=== PATIENT | female | born 1980 | race Caucasian/White ===

== ENCOUNTER 2022-11-05 09:38 | Outpatient (REF) | payer BC, SELFPAY ==
[2022-11-05 13:05] LABS: C Reactive Protein < 0.10 mg/dL (< or = 0.50)
[2022-11-05 13:25] LABS: Folate > 20.0 ng/mL (> or = 4.0); TSH reflex Free T4 1.53 uIU/mL (0.32-4.0); Vitamin B12 315 pg/mL (200-900)
[2022-11-06 11:32] LABS: H Pylori Breath Test Negative (Negative)
[2022-11-10 11:14] LABS: Transglutaminase Ab IgG <1.0 U/mL; Transglutaminase IgA <1.0 U/mL
[2022-11-11 07:58] LABS: Vitamin D 25-OH, D2 <4 ng/mL; Vitamin D 25-OH, D3 26 ng/mL; Vitamin D 25-OH, Total 26 ng/mL (30-100)
== END 2022-11-05 09:39 | disposition home or self-care (01) ==
LOC: HO.LAB 09:38
PROVIDERS: Visit Provider Nurse Practitioner Family
DX: R10.9 Unspecified abdominal pain (principal); K58.9 Irritable bowel syndrome, unspecified; R19.7 Diarrhea, unspecified; K59.00 Constipation, unspecified; E55.9 Vitamin D deficiency, unspecified
CPT/HCPCS: 36415; 82306; 82607; 82746; 83013; 84443; 86140; 86364

== ENCOUNTER 2022-11-18 13:41 | Outpatient (REF) | payer BC, SELFPAY ==
[2022-11-18 15:12] LABS: CDiff Gene PCR NEGATIVE (Negative)
[2022-11-18 15:39] LABS: Leukocytes Stool Qualitative NEGATIVE (NEGATIVE)
[2022-11-19 07:44] LABS: Campylobacter Not Detected (Not Detect.); E. coli EAEC Not Detected (Not Detect.); E. coli EPEC Not Detected (Not Detect.); E. coli ETEC Not Detected (Not Detect.); E. coli STEC Not Detected (Not Detect.); Plesiomonas shigelloides Not Detected (Not Detect.); Salmonella Not Detected (Not Detect.); Vibrio Not Detected (Not Detect.); Vibrio Cholerae Not Detected (Not Detect.); Yersinia enterocolitica Not Detected (Not Detect.)
[2022-11-19 07:45] LABS: Adenovirus F 40/41 Not Detected (Not Detect.); Astrovirus Not Detected (Not Detect.); Cryptosporidium Not Detected (Not Detect.); Cyclospora cayetanensis Not Detected (Not Detect.); Entamoeba histolytica Not Detected (Not Detect.); Giardia lamblia Not Detected (Not Detect.); Norovirus GI/GII Not Detected (Not Detect.); Rotavirus A Not Detected (Not Detect.); Sapovirus Not Detected (Not Detect.); Shigella sp./EIEC Not Detected (Not Detect.)
[2022-11-23 16:08] LABS: Fecal Fat Qualitative NORMAL (NORMAL)
[2022-11-25 00:37] LABS: Calprotectin, Fecal <5 mcg/g
== END 2022-11-18 13:42 | disposition home or self-care (01) ==
LOC: HO.LNP 13:41
PROVIDERS: Visit Provider Nurse Practitioner Family
DX: R15.9 Full incontinence of feces (principal); R19.7 Diarrhea, unspecified
CPT/HCPCS: 82705; 83993; 87177; 87209; 87493; 87507; 89055

== ENCOUNTER → 2022-12-14 10:36 | Outpatient (BNVA) | payer BC, SELFPAY | PROVIDERS: Visit Provider Nurse Practitioner Family ==

== ENCOUNTER 2022-12-16 11:35 | Day surgery (SDC) | payer BC, SELFPAY ==
--- NOTE | 2022-12-15 12:36 | P.CONAN_ITS ---
HPI - Anesthesia Eval Consult details Narrative: 42yo F for Upper Endoscopy PMFSH Active Problems Active Problems: All Active Problems (Updated 11/05/22 @ 10:43 by Sandra Ruby [facility]) GERD (gastroesophageal reflux disease) (Acute) Past Medical History Medical History Asthma Generalized anxiety disorder GERD (gastroesophageal reflux disease) Family History Family History Paternal Grandmother Breast cancer Maternal Grandmother Breast cancer Paternal Aunt Breast cancer Paternal Aunt Breast cancer Father Stroke Daughter Celiac disease Social History Social History Household Members: Family Alcohol intake: never Patient Tobacco Use Status: Never used Tobacco Meds Allergies Allergy/AdvReac Type Severity Reaction Status Date / Time No Known Allergies Allergy Unverified 12/14/22 10:49 Home Medications Medication Instructions Recorded Confirmed Last Taken Type fluoxetine 40 mg capsule 40 mg PO DAILY 11/05/22 Unknown History fremanezumab-vfrm 225 mg/1.5 mL mg subcut 11/05/22 Unknown History subcutaneous auto-injector (Ajovy) Exam Exam Date and Time: December 15, 2022 1236 Assessment and Plan Assessment Anesthesia Assessment: Chart Reviewed
[2022-12-16 11:41] VITALS: BMI 22.4
[2022-12-16] MEDS: Lactated Ringers 1,000 ML 100 ML IVCONT (11:52)
[2022-12-16 11:59] VITALS: BP 111/71; PULSE 61; RESP 18; TEMP 37.2; O2SAT 99
[2022-12-16 12:10] LABS: UPreg QC Valid YES; Urine Pregnancy NEGATIVE (NEGATIVE)
--- NOTE | 2022-12-16 12:37 | P.CONAN_ITS ---
[facility] Active Problems Active Problems: All Active Problems (Updated 11/05/22 @ 10:43 by Sandra Ruby [facility]) GERD (gastroesophageal reflux disease) (Acute) Past Medical History Medical History Asthma Generalized anxiety disorder GERD (gastroesophageal reflux disease) Family History Family History Paternal Grandmother Breast cancer Maternal Grandmother Breast cancer Paternal Aunt Breast cancer Paternal Aunt Breast cancer Father Stroke Daughter Celiac disease Family history of problems with anesthesia: No Surgical History History of Problems with Anesthesia: No Social History Social History Household Members: Family Alcohol intake: never Patient Tobacco Use Status: Never used Tobacco Are you DNR?: No Advance Directives: No Advance Directives Information Provided: Yes Nutrition Risks: No Nutritional Risk Meds Allergies Allergy/AdvReac Type Severity Reaction Status Date / Time No Known Allergies Allergy Unverified 12/14/22 10:49 Active Medications: Current Medications Albuterol Sulfate (Albuterol Sulfate (0.083%) 2.5 Mg/3 Ml Vial.Neb) 2.5 mg INHALE ONCE PRN PRN Reason: Shortness of Breath/Wheezing Lactated Ringer's (Lr) 1,000 mls @ 100 mls/hr IVCONT .Q10H DOC Last Admin: 12/16/22 11:52 Dose: 100 mls/hr Ondansetron HCl (Ondansetron Hcl 4 Mg/2 Ml Vial) 4 mg IVPUSH ONCE PRN PRN Reason: Nausea and Vomiting Home Medications Medication Instructions Recorded Confirmed Last Taken Type fluoxetine 40 mg capsule 40 mg PO DAILY 11/05/22 Unknown History fremanezumab-vfrm 225 mg/1.5 mL mg subcut 11/05/22 Unknown History subcutaneous auto-injector (Ajovy) Exam Exam Date and Time: December 16, 2022 1237 Height,Weight and Vital Signs: Height 5 ft 9.5 in Weight 69.853 kg Last Vital Signs Temp 98.9 F 12/16/22 11:59 Pulse 61 12/16/22 11:59 Resp 18 12/16/22 11:59 BP 111/71 12/16/22 11:59 Pulse Ox 99 12/16/22 11:59 O2 Del Method Room Air 12/16/22 11:59 Pertinent Lab Results Pertinent Lab Results: Laboratory Tests 12/16/22 11:50 Urine Test NEGATIVE Airway Mallampati Class: II TM Dist: >3cm Loose/Missing/Broken Teeth: No (rrr) Lungs: clear Assessment and Plan Final Anesthetic Review Family History of Problems with Anesthesia: No History of Problems with Anesthesia: No NPO: Yes ASA Class: II Final Preanesthetic Review: No Changes in Pt Med Stat, Meds/Allgs Chart Reviewed, Consent Obtained/Reviewed and Anes Risks/Benef Reviewed Patient Risk: Intermediate Procedure Risk: Low Anesthetic Plan Anesthetic Plan: MAC: Disposition: Standard PACU
--- NOTE | 2022-12-16 12:46 | MHC.SHP ---
Pre-Procedural Eval Section A Date of Service: 12/16/22 The patient is an INPATIENT: No Changes since office visit: Yes Patient answered all questions; No Cold of Flu in the past 2 weeks, No New Medical Problems and No Changes in Medication The History & Physical has been completed within 30 days and I have reviewed it.: Yes Section B Chief Complaint: Gastro-esophageal reflux disease without esophagit Allergies: Allergies Allergy/AdvReac Type Severity Reaction Status Date / Time No Known Allergies Allergy Unverified 12/14/22 10:49 Plan I have reviewed the history and physical and performed a pertinent physical examination on my patient. No changes have occurred unless specified. Time Spent With Patient Time: Total time managing care of this patient today ____ minutes.
--- NOTE | 2022-12-16 12:47 | P.OP_ITS ---
Operative Note Operative Note Date of Service: 12/16/22 Narrative: FLEXIBLE TRANSORAL UPPER GASTROINTESTINAL ENDOSCOPY WITH BIOPSIES Pre-op diagnosis: GERD Post-op diagnosis: GERD, gastritis Endoscopist:? Mamadou Crowder MD Anesthesia:?MAC Consent: Indications for the procedure and potential complications of bleeding, perforation, reaction to medications and missed diagnosis were discussed with the patient and informed consent was obtained. Instrument: Olympus GIF H 190 mid size upper endoscope Monitoring: Vital signs and clinical assessment, continuous EKG monitoring, Pulse oximetry, Carbon Dioxide monitoring and blood pressure monitoring were done throughout the procedure. Procedure: The patient was placed in the left lateral decubitis position and pre-procedure medications were administered and a bite block was placed. The endoscope was inserted into the mouth and advanced under direct vision to the third part of duodenum. A careful inspection was made as the upper endoscope was withdrawn including a retroflexed examination of the proximal stomach; Findings and interventions are described below. Findings: Larynx: Normal Esophagus: GE junction at 40 cms. No esophagitis or Thompson's. Stomach: Mild gastritis with linear streaks of erythema containing a few chronic appearing erosions. Biopsies were obtained. Grade 2 flap valve on retroflexed examination of the cardia. Duodenum: Normal bulb and descending duodenum. Biopsies were obtained from 3rd part of the duodenum to check for celiac sprue. Intervention: Biopsies as noted above Impression and Post Procedure Diagnosis: Endoscopy Findings: ESOPHAGUS: Normal STOMACH: Mild gastritis with linear streaks of erythema containing a few chronic appearing erosions. DUODENUM: Normal - biopsied to check for celiac sprue Plan: Await pathology results Patient has an appointment on 01/24/23 in the GI Clinic with Sandra Ruby FNP- [facility] . Above findings were reviewed with the patient and GERD handout was given in the discharge area
[2022-12-16 13:09] VITALS: BP 103/60; PULSE 69; RESP 20; TEMP 36.4; O2SAT 97
[2022-12-16 13:24] VITALS: BP 109/68; PULSE 53; RESP 16; O2SAT 100
[2022-12-16 13:34] VITALS: BP 106/68; PULSE 65; RESP 14; TEMP 36.4; O2SAT 100
== END 2022-12-16 14:24 | disposition home or self-care (01) ==
PROVIDERS: Nurse Practitioner; Visit Provider Internal Medicine Gastroenterology
PROC: 0DJ08ZZ Inspection of Upper Intestinal Tract, Via Natural or Artificial Opening Endoscopic (ICD-10-PCS; CPT 43235; principal; 2022-12-16 13:00)
DX: K21.9 Gastro-esophageal reflux disease without esophagitis (principal); K29.60 Other gastritis without bleeding; K22.4 Dyskinesia of esophagus; K58.2 Mixed irritable bowel syndrome; K59.1 Functional diarrhea; J45.909 Unspecified asthma, uncomplicated; F41.1 Generalized anxiety disorder; E55.9 Vitamin D deficiency, unspecified; Z79.899 Other long term (current) drug therapy
CPT/HCPCS: 43239; 81025; 88305; 88342

== ENCOUNTER → 2023-01-24 08:05 | Outpatient (BNVA) | payer BC, SELFPAY | PROVIDERS: Visit Provider Nurse Practitioner Family ==

== ENCOUNTER 2023-06-07 09:59 | Outpatient (AMB) | payer BC, SELFPAY ==
--- NOTE | 2023-06-07 10:00 | MHC.OFFVIS ---
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 Intake Note: New patient chest pain c/o chest pain daily mostly at rest in the AM can last up to 20 min and is located in the left upper chest Secondary Set Up Man Required: No Allergies No Known Allergies Allergy (Unverified 01/24/23 08:13) Medication List - Last Reconciled 06/07/23 by Rickey Berger MD cholecalciferol (vitamin D3) 50 mcg PO DAILY fluoxetine 40 mg PO DAILY fremanezumab-vfrm (Ajovy) mg subcut methylcellulose (laxative) (Citrucel) 500 mg PO DAILY pyridoxine (vitamin B6) 25 mg PO DAILY HPI HPI Comments History of Present Illness Details Thank you for referring Joan in cardiology consultation today for precordial chest discomfort. She is a 43-year-old female with no significant fast medical history with no history of hypertension, diabetes hyperlipidemia or smoking. She has GI issues with acid reflux disease as well as irritable bowel syndrome. Patient is referred here because of precordial chest discomfort. Should this she says is almost present on a daily basis for many years. Symptoms are described as dull ache usually when she wakes up in the morning and can sometimes get intense. She says she is anxious almost every day and this could increase the symptoms. She does not describe to symptoms as exertional in nature. Denies any lightheadedness, syncope. [facility] Medical History Generalized anxiety disorder Asthma GERD (gastroesophageal reflux disease) Surgical History History of esophagogastroduodenoscopy (EGD) Family History Paternal Grandmother Breast cancer Maternal Grandmother Breast cancer Paternal Aunt Breast cancer Paternal Aunt Breast cancer Father Stroke Daughter Celiac disease Social History Household Members: Family Alcohol intake: never Patient Tobacco Use Status: Never used Tobacco Review of Systems Const Denies chills, Denies fatigue, Denies fever(s), Denies frequent falls, Denies weakness, Denies weight gain and Denies weight loss ENT Denies dizziness Card Denies chest pain, Denies leg edema, Denies lightheadedness, Denies palpitations, Denies dyspnea, Denies dyspnea on exertion, Denies orthopnea and Denies other (loss of consciousness) Resp Denies cough, Denies dyspnea and Denies dyspnea on exertion GI Denies hematochezia and Denies change in stool character Musc Denies abnormal gait, Denies muscle weakness, Denies numbness, Denies radiating pain into limb and Denies tingling Neuro Denies abnormal gait, Denies dizziness, Denies frequent falls, Denies numbness, Denies tingling and Denies weakness Endo Denies fatigue and Denies palpitations Physical Exam Vital Signs: Last Vital Signs Pulse 70 06/07/23 10:01 BP 118/72 06/07/23 10:01 BMI result Body Mass Index 23.4 Const General: cooperative, comfortable, no acute distress, well developed, alert, awake and Physically active Nutritional Appearance: thin Orientation/consciousness: patient oriented x3 Limitations: no limitations HEENT Head: Yes normocephalic and Yes atraumatic Neck Neck: Yes trachea midline, Yes supple and Yes no JVD Resp Effort & Inspection: normal respiratory effort Auscultation: clear to auscultation bilaterally Cardio Jugular venous distension: no JVD Palpation: normal PMI Rate: regular rate Rhythm: regular rhythm Heart sounds: S1 normal heart sound present, S2 normal heart sound present, no click, no gallops, no murmurs and no rubs GI Auscultation: normal bowel sounds Skin General skin exam: no rashes or lesions noted Neuro General: patient oriented x3 and no focal motor deficits Extrem General: Yes no clubbing, cyanosis or edema Psych Affect: Anxious affect present Attitude: Avoids eye contact (attititude/behavior) Office Procedures EKG Details: EKG shows normal sinus rhythm normal EKG [id number], Complete Assessment & Plan Assessment & Plan (1) Precordial pain: Code(s): R07.2 - Precordial pain Plan: Precordial chest pain this young woman without significant cardiovascular risk factors with atypical nature of the discomfort occasional increased with stressful situation. Likelihood of underlying obstructive coronary artery disease low. Given baseline normal EKG will pursue regular treadmill exercise stress test to evaluate for myocardial ischemia. If this is negative noncardiac causes of chest pain need to be evaluated including possible GI related chest pain and/or musculoskeletal chest pain. Will follow up in the clinic if need be. Thank you for allowing me to partake in her care Orders: Orders CA stress test Today R07.2 - Precordial pain Coding Level of Care Code New Pt Level 3 (87602) Diagnoses Precordial pain R07.2 CPT Codes EKG - CPT: 78798-[id number], Complete ([id number])
[2023-06-07 10:01] VITALS: BP 118/72; PULSE 70; BMI 23.4
== END 2023-06-07 10:26 | disposition home or self-care (01) ==
PROVIDERS: Visit Provider Internal Medicine Cardiovascular Disease
DX: R07.2 Precordial pain (principal)
CPT/HCPCS: 93010; 99203

== ENCOUNTER → 2023-06-07 09:59 | Outpatient (BNVA) | payer BC, SELFPAY | PROVIDERS: Visit Provider Internal Medicine Cardiovascular Disease | DX: R07.2 Precordial pain (principal) | CPT/HCPCS: 93005 ==

== ENCOUNTER → 2023-08-19 14:18 | Outpatient (BNVA) | payer BC, SELFPAY | PROVIDERS: Visit Provider Nurse Practitioner Family ==

== ENCOUNTER 2024-02-17 13:42 | Outpatient (AMB) | payer BC, SELFPAY ==
[2024-02-17 13:53] VITALS: BP 99/67; PULSE 65; BMI 22.4
--- NOTE | 2024-02-17 13:53 | A.OFFVIS_ITS ---
Vital Signs 02/17/24 13:53 Height 5 ft 9 in Weight 151 lb 10.848 oz BMI 22.4 BP 99/67 Blood Pressure Location Rt brachial Position Sitting Pulse 65 Intake Visit Reasons: Follow up 6 months Intake Note: Joan returns to in office today in 6 months follow up. CC: Patient reports doing well and denies having any GI concerns today. 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 Discussed with patient avoiding dietary triggers and late night snacking. Staying upright for minimum 3 hours after meals discussed with patient. Patient will follow-up with PCP and will request referral to an senior account representative. 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 Patient will follow-up in the office in 6 months, sooner on as needed basis. Patient is agreeable to this plan and verbalizes understanding of instructions. She was given the opportunity to ask questions and all questions answered. ? Thank you for allowing me to participate in her care Medications New esomeprazole magnesium (Nexium) 40 mg PO DAILY 30 caps 5RF K21.9 TODAY'S VISIT Patient is here today for follow-up. Patient reports that she has been feeling better. Patient reports that she no longer has a esophageal spasms and dysphagia. Occasional acid reflux depending on what she eats. Patient states that she stopped taking Nexium and no longer feels like she needs it. Patient was seen by senior account representative and was told that she does not have any allergies. CT scan of the head was done and patient was found to have deviated septum and clear sinuses. Was told that she might suffer from postnasal drip that sometimes could be causing her symptoms. Patient reports occasional abdominal bloating. Moves her bowels without any issues. Patient denies any other GI concerning symptoms PFSH Medical History Generalized anxiety disorder Asthma GERD (gastroesophageal reflux disease) Surgical History History of esophagogastroduodenoscopy (EGD) Family History Paternal Grandmother Breast cancer Maternal Grandmother Breast cancer Paternal Aunt Breast cancer Paternal Aunt Breast cancer Father Stroke Daughter Celiac disease Social History Household Members: Family Alcohol intake: never Patient Tobacco Use Status: Never used Tobacco Physical Exam Vital Signs: BMI result Body Mass Index 22.4 Const General: healthy appearing, no acute distress and well developed Nutritional Appearance: well nourished Orientation/consciousness: patient oriented x3 HEENT Head: Yes normal to inspection, Yes normocephalic and Yes atraumatic Face and sinus: Yes normal facial exam Mouth: Normal oral and palatal mucosa present Throat: Yes posterior oropharynx normal, Yes tonsils normal and Yes uvula midline Eyes General: appearance normal, both eyes and all related structures Neck Neck: Yes normal visual inspection, Yes full ROM and Yes trachea midline Thyroid: Thyroid normal Resp Effort & Inspection: normal respiratory effort, able to speak in complete sentences, no tracheal deviation and symmetric chest movement Auscultation: clear to auscultation bilaterally Cardio Rate: regular rate GI Inspection: Yes normal to inspection and No distended Palpation (GI): Soft to palpation, not firm, nontender and No hepatosplenomegaly present Auscultation: normal bowel sounds General: Yes no CVA tenderness Back/Spine/Pelvis Back: no CVA tenderness Skin General skin exam: elasticity normal, turgor normal and dry skin Neuro General: patient oriented x3 Psych Appearance: grossly normal Assessment & Plan Assessment & Plan (1) GERD (gastroesophageal reflux disease): Code(s): K21.9 - Gastro-esophageal reflux disease without esophagitis Category: Medical Qualifiers: Esophagitis presence: esophagitis presence not specified Qualified Code(s): K21.9 - Gastro-esophageal reflux disease without esophagitis Plan May use Pepcid on as needed basis.. Avoid dietary triggers and late night snacking. Staying upright for minimum 3 hours after meals discussed with patient. Follow-up in our office on as needed basis. Patient is agreeable to this plan and verbalizes understanding of instructions. She was given the opportunity to ask questions and all questions answered. Thank you for allowing me to participate in her care Medications: New famotidine (Pepcid) 20 mg PO BEDTIME 30 tabs 3RF K21.9 - Gastro-esophageal reflux disease without esophagitis Coding Level of Care Code Est Pt Level 3 (50716) Diagnoses Gastroesophageal reflux disease, unspecified whether esophagitis present K21.9 Esophagitis presence: esophagitis presence not specified Time Spent (min) 25 Comment 15 minutes spent with patient and additional 10 minutes spent reviewing her records
== END 2024-02-17 14:57 | disposition home or self-care (01) ==
PROVIDERS: Visit Provider Nurse Practitioner Family
DX: K21.9 Gastro-esophageal reflux disease without esophagitis (principal)
CPT/HCPCS: 99213

== ENCOUNTER → 2024-02-17 13:42 | Outpatient (BNVA) | payer BC, SELFPAY | PROVIDERS: Visit Provider Nurse Practitioner Family ==